=== PATIENT | female | born 1955 | race Caucasian/White ===

== ENCOUNTER 2021-04-15 17:46 | Observation (INO) | payer MEDICARE ==
--- NOTE | 2021-04-15 18:46 | EDM.PDOC ---
ED HPI GENERAL MEDICAL PROBLEM - General Chief Complaint: General Stated Complaint: SWOLLEN LEGS Time Seen by Provider: 04/15/21 18:25 Source of Information: Reports: Patient History Limitations: Reports: No Limitations - History of Present Illness INITIAL COMMENTS - FREE TEXT/NARRATIVE: 65 year old female with PMH of HTN presents to ED after 2 weeks of bilateral LE swelling and left leg pain. She denies any CP, fever, cough, abdominal, n/v/d. She dose have urinary frequency, but no burning. Her left leg pain is from her hip to her ankle and increased with walking. Patient appears very unkept. Dyspnea on exertion. - Related Data Allergies Allergy/AdvReac Type Severity Reaction Status Date / Time No Known Allergies Allergy Verified 04/15/21 20:27 Home Meds: Home Meds Hydrochlorothiazide/Lisinopril [Lisinopril-HCTZ 20-12.5 MG] 1 tab PO DAILY 04/15/21 [History] Social & Family History - Tobacco Use Tobacco Use Status *Q: Never Tobacco User Second Hand Smoke Exposure: No - Caffeine Use Caffeine Use: Reports: Soda - Recreational Drug Use Recreational Drug Use: No ED ROS GENERAL - Review of Systems Review Of Systems: See Below Constitutional: Reports: No Symptoms HEENT: Reports: No Symptoms Respiratory: Reports: Shortness of Breath Cardiovascular: Reports: Dyspnea on Exertion Endocrine: Reports: No Symptoms GI/Abdominal: Reports: No Symptoms : Reports: Frequency Musculoskeletal: Reports: Leg Pain Skin: Reports: Other (dermopathy of bilateral LE, entire body had multiple bug bites in various stages of healing ) Neurological: Reports: No Symptoms Psychiatric: Reports: No Symptoms Hematologic/Lymphatic: Reports: No Symptoms Immunologic: Reports: No Symptoms ED EXAM, GENERAL - Physical Exam Exam: See Below Exam Limited By: No Limitations General Appearance: Alert, No Apparent Distress Eye Exam: Bilateral Eye: Normal Inspection, PERRL Ears: Normal External Exam, Normal Canal, Hearing Grossly Normal, Normal TMs Ear Exam: Bilateral Ear: Auricle Normal, Canal Normal, TM normal Nose: Normal Inspection, Normal Mucosa, No Blood Throat/Mouth: Normal Inspection, Normal Lips, Normal Gums, Normal Oropharynx, Normal Voice, No Airway Compromise Head: Atraumatic Neck: Normal Inspection, Non-Tender, Full Range of Motion Respiratory/Chest: No Respiratory Distress, Lungs Clear, Normal Breath Sounds, No Accessory Muscle Use, Chest Non-Tender Cardiovascular: Normal Peripheral Pulses, Regular Rate, Rhythm, No JVD, No Murmur Peripheral Pulses: 2+: Dorsalis Pedis (L), Dorsalis Pedis (R), 3+: Carotid (L), Carotid (R), Radial (L), Radial (R), Posterior Tibial (L), Posterior Tibial (R) GI/Abdominal: Normal Bowel Sounds, Soft, Non-Tender, No Organomegaly Back Exam: Normal Inspection, Full Range of Motion. No: CVA Tenderness (R), CVA Tenderness (L) Extremities: Normal Capillary Refill, Pedal Edema, Leg Pain Neurological: Alert, Oriented, CN II-XII Intact, Normal Gait, No Motor/Sensory Deficits Psychiatric: Normal Affect, Normal Mood Skin Exam: Warm, Dry Lymphatic: No Adenopathy Course - Vital Signs Last Recorded V/S: Last Vital Signs Temp 99.0 F 04/15/21 18:38 Pulse 92 04/15/21 20:30 Resp 18 04/15/21 20:30 BP 149/74 H 04/15/21 20:30 Pulse Ox 97 04/15/21 20:30 - Orders/Labs/Meds Orders: Active Orders 24 hr Category Date Time Status Admission Status [Patient Status] [ADT] Routine ADT 04/15/21 22:32 Ordered EKG Documentation Completion [RC] ASDIRECTED Care 04/15/21 18:48 Active Chest 1V Frontal [CR] Stat Exams 04/15/21 18:53 Taken Chest w Cont [CT] Stat Exams 04/15/21 20:44 Taken CORONAVIRUS COVID-19 RAPID [MOLEC] Stat Lab 04/15/21 22:28 Ordered CULTURE URINE [RM] Stat Lab 04/15/21 20:00 Received Enoxaparin [Lovenox] Med 04/15/21 22:36 Once 80 mg SUBCUT ONETIME ONE Iopamidol [Isovue-300 (61%)] Med 04/15/21 21:00 Active 100 ml IV . DIRECTED Medication Orders Iopamidol (Iopamidol 612 Mg/Ml 100 Ml Bottle) 100 ml IV . DIRECTED ARLETTE Labs: Laboratory Tests 04/15/21 04/15/21 04/15/21 Range/Units 19:10 19:10 19:15 WBC 11.9 H (4.0-11.0) K/uL RBC 4.44 (3.80-5.80) M/uL Hgb 13.6 (11.5-16.5) g/dL Hct 40.4 (37.0-47.0) % MCV 91 (76-96) fL MCH 30.6 (27.0-32.0) pg MCHC 33.7 (31.0-35.0) g/dL RDW 13.4 (11.0-16.0) % Plt Count 227 (150-500) K/uL MPV 11.8 H (6.0-10.0) fL Neut % (Auto) 58.1 (45.0-70.0) % Lymph % (Auto) 31.7 (20.0-40.0) % [place] % (Auto) 8.2 (3.0-10.0) % Eos % (Auto) 1.8 (1.0-5.0) % Baso % (Auto) 0.2 (0.0-0.5) % Neut # (Auto) 6.91 (2.00-7.50) K/uL Lymph # (Auto) 3.78 (1.50-4.00) K/uL [place] # (Auto) 0.98 H (0.20-0.80) K/uL Eos # (Auto) 0.22 (0.04-0.40) K/uL Baso # (Auto) 0.02 (0.02-0.10) K/uL D-Dimer, Quantitative 725 H (0-400) ng/mL Sodium 142 (136-145) mmol/L Potassium 3.9 (3.5-5.1) mmol/L Chloride 106 (98-107) mmol/L Carbon Dioxide 28.0 (21.0-32.0) mmol/L Anion Gap 11.9 (5.0-15.0) mmol/L BUN 21 (8-26) mg/dL Creatinine 0.95 (0.55-1.02) mg/dL Est Cr Clr Drug Dosing 50.30 mL/min Estimated GFR (MDRD) 59 L (>60) MLS/MIN BUN/Creatinine Ratio 22.1 (6-25) Glucose 111 H (74-100) mg/dL Calcium 8.8 (8.5-10.1) mg/dL Total Bilirubin 0.2 D (0.0-1.0) mg/dL AST 23 (15-37) U/L ALT 24 (12-78) U/L Alkaline Phosphatase 95 (46-116) U/L Troponin I < 0.017 (0.000-0.060) ng/mL B-Natriuretic Peptide 50 (0-125) pg/mL Total Protein 7.4 (6.4-8.2) g/dL Albumin 3.3 L (3.4-5.0) g/dL Globulin 4.1 (2.2-4.2) g/dL Albumin/Globulin Ratio 0.8 (0.8-2.0) Urine Color Urine Appearance (CLEAR) Urine pH (5.0-8.0) Ur Specific [place] (1.003-1.030) Urine Protein (NEGATIVE) mg/dL Urine Glucose (UA) (NEGATIVE) mg/dL Urine Ketones (NEGATIVE) mg/dL Urine Occult Blood (NEGATIVE) Urine Nitrite (NEGATIVE) Urine Bilirubin (NEGATIVE) Urine Urobilinogen (0.2-1.0) E.U./dL Ur Leukocyte Esterase (NEGATIVE) Urine RBC /HPF Urine WBC /HPF Ur Squamous Epith Cells /HPF Urine Bacteria /HPF 04/15/21 Range/Units 20:00 WBC (4.0-11.0) K/uL RBC (3.80-5.80) M/uL Hgb (11.5-16.5) g/dL Hct (37.0-47.0) % MCV (76-96) fL MCH (27.0-32.0) pg MCHC (31.0-35.0) g/dL RDW (11.0-16.0) % Plt Count (150-500) K/uL MPV (6.0-10.0) fL Neut % (Auto) (45.0-70.0) % Lymph % (Auto) (20.0-40.0) % [place] % (Auto) (3.0-10.0) % Eos % (Auto) (1.0-5.0) % Baso % (Auto) (0.0-0.5) % Neut # (Auto) (2.00-7.50) K/uL Lymph # (Auto) (1.50-4.00) K/uL [place] # (Auto) (0.20-0.80) K/uL Eos # (Auto) (0.04-0.40) K/uL Baso # (Auto) (0.02-0.10) K/uL D-Dimer, Quantitative (0-400) ng/mL Sodium (136-145) mmol/L Potassium (3.5-5.1) mmol/L Chloride (98-107) mmol/L Carbon Dioxide (21.0-32.0) mmol/L Anion Gap (5.0-15.0) mmol/L BUN (8-26) mg/dL Creatinine (0.55-1.02) mg/dL Est Cr Clr Drug Dosing mL/min Estimated GFR (MDRD) (>60) MLS/MIN BUN/Creatinine Ratio (6-25) Glucose (74-100) mg/dL Calcium (8.5-10.1) mg/dL Total Bilirubin (0.0-1.0) mg/dL AST (15-37) U/L ALT (12-78) U/L Alkaline Phosphatase (46-116) U/L Troponin I (0.000-0.060) ng/mL B-Natriuretic Peptide (0-125) pg/mL Total Protein (6.4-8.2) g/dL Albumin (3.4-5.0) g/dL Globulin (2.2-4.2) g/dL Albumin/Globulin Ratio (0.8-2.0) Urine Color Yellow Urine Appearance Clear (CLEAR) Urine pH 6.0 (5.0-8.0) Ur Specific [place] < 1.005 (1.003-1.030) Urine Protein Negative (NEGATIVE) mg/dL Urine Glucose (UA) Negative (NEGATIVE) mg/dL Urine Ketones Negative (NEGATIVE) mg/dL Urine Occult Blood Negative (NEGATIVE) Urine Nitrite Negative (NEGATIVE) Urine Bilirubin Negative (NEGATIVE) Urine Urobilinogen 0.2 (0.2-1.0) E.U./dL Ur Leukocyte Esterase Trace H (NEGATIVE) Urine RBC Not seen /HPF Urine WBC 0-5 H /HPF Ur Squamous Epith Cells Few /HPF Urine Bacteria Few /HPF Meds: Medications Generic Name Dose Route Start Last Admin Trade Name Freq PRN Reason Stop Dose Admin Iopamidol 100 ml 04/15/21 21:00 Iopamidol 612 Mg/Ml 100 Ml Bottle IV . DIRECTED ARLETTE Discontinued Medications Generic Name Dose Route Start Last Admin Trade Name Marly PRN Reason Stop Dose Admin Acetaminophen 650 mg 04/15/21 18:47 Acetaminophen 325 Mg Tab PO 04/15/21 18:48 NOW ONE Acetaminophen Confirm 04/15/21 20:50 Acetaminophen 325 Mg Tab Administered 04/15/21 20:51 Dose 650 mg .ROUTE .STK-MED ONE Sodium Chloride 50 ml 04/15/21 20:55 Sodium Chloride 0.9% 50 Ml Sdv FLUSH 04/15/21 20:56 ONETIME ONE Departure - Departure Time of Disposition: 22:46 Disposition: Admitted As Inpatient 65 Clinical Impression: SOBOE (shortness of breath on exertion), Need for follow-up by group social worker Lower extremity pain Qualifiers: Laterality: left Qualified Code(s): M79.605 - Pain in left leg - Discharge Information *PRESCRIPTION DRUG MONITORING PROGRAM REVIEWED*: Not Applicable *COPY OF PRESCRIPTION DRUG MONITORING REPORT IN PATIENT DILMA: Not Applicable Referrals: PCP,None [Primary Care Provider] - Forms: ED Department Discharge Sepsis Event Note (ED) - Focused Exam Vital Signs: Vital Signs Temp Pulse Resp BP Pulse Ox 04/15/21 20:30 92 18 149/74 H 97 04/15/21 18:38 99.0 F 95 17 154/47 H 98 - My Orders Last 24 Hours: My Active Orders 04/15/21 18:48 EKG Documentation Completion [RC] ASDIRECTED 04/15/21 18:53 Chest 1V Frontal [CR] Stat 04/15/21 20:00 CULTURE URINE [RM] Stat 04/15/21 20:44 Chest w Cont [CT] Stat 04/15/21 21:00 Iopamidol [Isovue-300 (61%)] 100 ml IV . DIRECTED 04/15/21 22:28 CORONAVIRUS COVID-19 RAPID [MOLEC] Stat 04/15/21 22:32 Admission Status [Patient Status] [ADT] Routine 04/15/21 22:36 Enoxaparin [Lovenox] 80 mg SUBCUT ONETIME ONE - Assessment/Plan Last 24 Hours: My Active Orders 04/15/21 18:48 EKG Documentation Completion [RC] ASDIRECTED 04/15/21 18:53 Chest 1V Frontal [CR] Stat 04/15/21 20:00 CULTURE URINE [RM] Stat 04/15/21 20:44 Chest w Cont [CT] Stat 04/15/21 21:00 Iopamidol [Isovue-300 (61%)] 100 ml IV . DIRECTED 04/15/21 22:28 CORONAVIRUS COVID-19 RAPID [MOLEC] Stat 04/15/21 22:32 Admission Status [Patient Status] [ADT] Routine 04/15/21 22:36 Enoxaparin [Lovenox] 80 mg SUBCUT ONETIME ONE Plan: PE CT was "very suboptimal and essentially nondiagnostic for PE", Berna noguera called radiologist to discuss this finding. The radiologist said that the patient may have been anxious and have fast cardiac output, therefore the contrast moved too quickly. Called [place] [facility] to speak with ED MR, Dr. Zamorano, they also do not have US, he advised to give the patient 1 dose of lovenox sq 1mg/kg, obs admit and then find US in the AM. Patient and daughter are both agreeable to this plan. Patient will be admitted obs. [id number] Patient will need bilateral LE US in the AM, and social work consult. Spoke with Dr. Barnes ehospitalist, he thinks this is a reasonable plan and will see the patient on camera shortly. Maria E patient;s daughter # [phone], please call with updates as needed.
[2021-04-15] MEDS ORDERED: Acetaminophen 325 MG Tab PO ONE (18:47)
--- NOTE | 2021-04-15 19:43 | PCM.EKG ---
#1 Interpretation EKG Date: 04/15/21 Time: 19:10 Rhythm: NSR [place]: Normal P-Wave: Present QRS: Normal ST-T: Normal QT: Normal Comparison: NA - No Prior EKG
--- NOTE | 2021-04-15 19:51 | PCM.SN.2 ---
- Free Text/Narrative Note: Patient arrives very unkept, visible dirt on skin, strong odor, odor of pets, what appears to be flea or bed bug bites all over her body. Spoke with daughter, patient has 15 cats, 1 large dog, 1 small dog, her daughter states she has been trying to get her mother to move, but she will not clean or move out. Tiffani LARA called Micha the social services manager to report a self neglect of an adult. Discussed with daughter vulnerable status for her mother, she agrees there is self-neglect for self care and her decision making capacity is decreased per her daughter. There are concerns for financial issues about paying her bills. Her daughter has just found out how bad her living situation is, she is looking for some help and resources to help her mother.
[2021-04-15] MEDS ORDERED: Acetaminophen 325 MG Tab ONE (20:50)
[2021-04-15] MEDS ORDERED: Sodium Chloride 0.9% 50 ML SDV FLUSH ONE (20:55)
[2021-04-15] MEDS ORDERED: Iopamidol 612 MG/ML 100 ML Bottle IV SCH (21:00)
[2021-04-15] MEDS ORDERED: Enoxaparin 80 MG/0.8 ML Syringe SUBCUT ONE (22:36)
--- NOTE | 2021-04-16 00:47 | PCM.SN.2 ---
- Free Text/Narrative Note: [facility]. The [facility] Hospitalist was contacted by the ER provider, with a request for admission support and cross coverage service for this patient. The local provider is Joanie Aaron NP Reason for Admission: Suspected left lower extremity DVT and pulmonary embolism. HPI: This patient is a 65-year-old lady with a history of hypertension and lower leg edema. She was brought in by her daughter who reported that the patient has been complaining of worsening swelling in her legs for 2 weeks and increased shortness of breath, especially with exertion, for the last couple of days. The patient has also complained of left leg pain and redness for the last couple of days. Patient states the pain extends from the left hip to the ankle and is worsened by weightbearing and walking. The patient appears to have very poor hygiene and is suffering from insect bites (probably flea bites) on her extremities. The patient admits to having several dogs and cats in her home. The ER provider also feels there is some evidence that the patient has some form of developmental or intellectual delay syndrome, and chronically suffers from poor self-management/self-care. She claims hypertension as her only health problem. She denies other chronic health problems that she sees a physician for, and claims no operations in the past. Her evaluation in the ER revealed a mild temperature elevation at 99 degrees. She was hemodynamically stable with a heart rate of 92 and a blood pressure of 149/78. Her SaO2 level was 97% on room air. Her physical exam was most remarkable for bilateral lower extremity edema in the 2/4 range. There also appears to be increased mild erythema in the left leg. A D-dimer was elevated at 725. The remainder of her basic lab data was unremarkable. A CTA of the chest to rule out PE was suboptimal and nondiagnostic for PE. The official radiology report is pending. A venous Doppler flow study is not available at the local hospital. The ER provider has opted to start the patient on full anticoagulation therapy and seek out appropriate studies at another facility tomorrow, as well as consider the pros and cons of repeating the CTA of the chest at an appropriate time or getting a ventilation/perfusion scan of the lungs were available. The the [facility] hospitalist has been consulted to provide cross coverage services and admission support. Refer to the ER provider for more detail on the HPI. Regarding the additional studies that are being planned, I recommended that the patient should be considered for an echocardiogram due to her fairly chronic leg edema and worsening dyspnea on exertion. Home Medications: Reviewed in the EMR. Pertinent Medical History: Hypertension. Pertinent Social History: See admission H&P. EXAM: Performed via interactive video with assistance of bedside nurse, Be olivares. VITAL SIGNS: T 99. P 92. RR 18. BP 149/78. SPO2 97% on RA. Weight 81.67 kg. GENERAL APPEARANCE: Alert and oriented to person, place, and time. The patient is conversant and able to answer questions appropriately. She does not appear short of breath. No distress displayed. NECK: No JVD seen. Supple. HEENT: Facial features symmetric. Mucous membranes normal-appearing. LUNGS: CTA, bilaterally. HEART: There is a regular rhythm and rate. No murmurs, gallops, or rubs are heard. ABDOMEN: Soft. Nontender. EXTREMITIES: There is 2/4 dependent edema in both lower extremities below the kn ee. There appears to be mild rubor or erythema in the left leg below the knee. No tenderness detected SKIN: Multiple insect bites noted on the lower extremities, bilaterally. Fleabites are suspected. NEUROLOGICAL: Alert and well oriented x3. Cranial nerves II through XII appear to be functioning normally. No tremors or myoclonus are seen. Normal volitional movement is seen in all 4 extremities. Pertinent Lab data reviewed in the EMR: Hgb 13.6. HCT 40.4. WBC 11.9. PLT 227. D-dimer 725. BUN 21. Creatinine 0.95. Glucose 111. EKG: Per the ER providers interpretation, there is NSR. No heart blocks seen. No Ischemic ST segment or T wave abnormalities seen. No acute ST segment elevation or Q wave formation seen. RADIOLOGY: Images and available radiology reports were reviewed in the EMR. A CT of the chest was established as nondiagnostic and suboptimal for ruling out pulmonary embolism. ASSESSMENT 1. Assessment and plans have been reviewed with the admitting local provider: Joanie Aaron NP. 2. Suspected left lower extremity thrombophlebitis/DVT. 3. Suspected PE. 4. Dyspnea and ROME by history and exam. 5. Bilateral lower extremity edema. 6. Elevated D-Dimer. 7. History of HTN. 8. Evidence of poor self-care. PLAN/RECOMMEND 1. [facility] [place] [facility] admission support, and cross-coverage service. 2. The [facility] hospitalist will review admission orders. 3. Recommend starting full anticoagulation therapy at this time (Lovenox 1 mg/kg subcutaneously twice daily). 4. Consider the pros and cons of repeating the CTA of the chest at an appr opriate time or getting an alternative study such as a ventilation/perfusion scan of the lungs were available. 5. Recommend venous Doppler flow studies of both lower extremities. 6. Recommend an echocardiogram. 7. Recommend telemetry and close monitoring of vital signs. Thank you for including [facility]. This service is available for further assistance as requested by your care team by calling [phone].
[2021-04-16] MEDS ORDERED: Lisinopril 20 MG Tab PO SCH (08:00)
[2021-04-16] MEDS ORDERED: Hydrochlorothiazide 12.5 MG Cap PO SCH (08:00)
--- NOTE | 2021-04-16 08:46 | CR ---
DATE OF SERVICE: 04/15/21 CLINICAL DATA: LE edema AP PORTABLE CHEST: Comparison is made to a prior exam dated 07/06/19. The patient has taken a poor inspiration. The heart is enlarged. It has increased in size from the prior exam. The pulmonary vasculature appears more prominent than on the prior exam with some cephalization of flow consistent with pulmonary venous congestion. Mild congestive failure should be considered. The lungs are clear. No pneumothorax. No pleural effusions. [id number] [facility]
--- NOTE | 2021-04-16 08:59 | CT ---
DATE OF SERVICE: 04/15/21 CLINICAL DATA: LE edema, elevated ddimer ENHANCED CHEST CT: Multislice acquisition through the chest with IV contrast was performed. No priors. There is an adequate contrast opacification of the pulmonary arteries to exclude PE. No pneumothorax. No pleural effusions. The ascending aorta is mildly ectatic. It measures 3.5 cm in diameter. No evidence of aortic dissection. The heart size is normal. No pericardial effusion. There are atelectatic changes of the dependent portion of both lungs and in both lung bases. There are linear densities in both lower lungs consistent with linear atelectatic or fibrosis. The lungs are otherwise clear. No areas of consolidation. No hilar or mediastinal adenopathy. There is degenerative disc disease throughout the thoracic spine. No other significant findings. [id number] [facility]
[2021-04-16] MEDS ORDERED: diphenhydrAMINE 25 MG Cap PO PRN (09:05)
--- NOTE | 2021-04-17 17:40 | PCM.SN.2 ---
- Free Text/Narrative Note: Additional Radiologist review stated that the PE CT was negative for clots. Her bilateral LE US was also negative for clots. Daughter Maria E is in touch with Micha Mcdonald [facility] and is working to find new housing for her mother in the meantime she will stay at [facility]. Maria E and patient verbalized understanding of DC and all questions were answered prior to DC.
== END 2021-04-16 17:30 | disposition home or self-care (01) ==
LOC: LB.ED 17:46 → LB.MS 22:32 → UNDOADMOB 23:18
PROVIDERS: ADMIT Nurse Practitioner; ATTEND Nurse Practitioner
DX: R60.0 Localized edema (principal); M79.605 Pain in left leg; N39.0 Urinary tract infection, site not specified; I10 Essential (primary) hypertension; Z79.899 Other long term (current) drug therapy; Z20.822 Contact with and (suspected) exposure to COVID-19
CPT/HCPCS: 36415; 71045; 71260; 80053; 81001; 83880; 84484; 85025; 85379; 87086; 93005; 99285-25; A9270-GY; G0378; J1650; Q9967; U0002

== ENCOUNTER 2022-05-02 22:10 | Emergency (ER) | payer MEDICARE ==
[2022-05-02] MEDS ORDERED: Ketorolac 30 MG/ML SDV IM ONE (22:40)
[2022-05-02] MEDS ORDERED: Orphenadrine 60 MG/2 ML Inj IM ONE (22:41)
[2022-05-02] MEDS ORDERED: Sulfamethoxazole/Trimethoprim 800-160 MG Tab ONE (23:00)
== END 2022-05-03 00:19 | disposition home or self-care (01) ==
LOC: LB.ED 22:10
DX: N30.01 Acute cystitis with hematuria (principal); I10 Essential (primary) hypertension; Z79.899 Other long term (current) drug therapy
CPT/HCPCS: 74176; 81001; 87086; 87088; 87186; 99283; 99284-25; A9270-GY

== ENCOUNTER 2024-03-23 08:48 | Emergency (ER) | payer MEDICARE, MEDICAID | END 2024-03-23 10:05 | disposition home or self-care (01) | LOC: LB.ED 08:48 | DX: H04.123 Dry eye syndrome of bilateral lacrimal glands (principal); I10 Essential (primary) hypertension; E66.9 Obesity, unspecified; Z86.16 Personal history of COVID-19; Z68.32 Body mass index [BMI] 32.0-32.9, adult; Z79.899 Other long term (current) drug therapy | CPT/HCPCS: 99283 ==

== ENCOUNTER 2024-10-18 14:49 | Emergency (ER) | payer MEDICARE, MEDICAID ==
[2024-10-18] MEDS: Diphtheria,Pertussis(Acell),Tetanus Vaccine 0.5 ML Syringe IM ONE (15:26)
== END 2024-10-18 15:45 | disposition home or self-care (01) ==
LOC: LB.ED 14:49
DX: S91.331A Puncture wound without foreign body, right foot, initial encounter (principal); I10 Essential (primary) hypertension; E66.9 Obesity, unspecified; Z86.16 Personal history of COVID-19; Z79.899 Other long term (current) drug therapy; Z68.34 Body mass index [BMI] 34.0-34.9, adult; Z23 Encounter for immunization; W27.3XXA Contact with needle (sewing), initial encounter; Y93.E9 Activity, other interior property and clothing maintenance; Y92.039 Unspecified place in apartment as the place of occurrence of the external cause
CPT/HCPCS: 90471; 90715; 99283; 99283-25

== ENCOUNTER 2025-04-07 21:06 | Emergency (ER) | payer MEDICARE, MEDICAID ==
[2025-04-07 22:04] LABS: APPEARANCE,URINE CLEAR (CLEAR); BILIRUBIN,URINE NEGATIVE (NEGATIVE); COLOR,URINE YELLOW; GLUCOSE,URINE NEGATIVE (NEGATIVE); KETONES,URINE NEGATIVE (NEGATIVE); LEUKOCYTE ESTERASE,URINE SMALL (NEGATIVE); NITRITE,URINE NEGATIVE (NEGATIVE); OCCULT BLOOD,URINE NEGATIVE (NEGATIVE); PH,URINE 5.5 (5.0-8.0); PROTEIN,URINE NEGATIVE (NEGATIVE); UROBILINOGEN,URINE 0.2 E.U./dL (0.2-1.0)
[2025-04-07 22:08] LABS: BASOPHILS ABSOLUTE AUTO 0.02 K/uL (0.02-0.10); BASOPHILS PERCENT AUTO 0.2 % (0.0-0.5); EOSINOPHILS ABSOLUTE AUTO 0.22 K/uL (0.04-0.40); HEMATOCRIT 41.7 % (37.0-47.0); HEMOGLOBIN 13.9 g/dL (11.5-16.5); LYMPHOCYTES ABSOLUTE AUTO 3.88 K/uL (1.50-4.00); LYMPHOCYTES PERCENT AUTO 35.3 % (20.0-40.0); MEAN CORPUSCULAR HGB CONC 33.3 g/dL (31.0-35.0); MEAN CORPUSCULAR VOLUME 93 fL (76-96); MEAN PLATELET VOLUME 12.5 fL (6.0-10.0); MONOCYTES ABSOLUTE AUTO 0.91 K/uL (0.20-0.80); MONOCYTES PERCENT AUTO 8.3 % (3.0-10.0); NEUTROPHILS ABSOLUTE AUTO 5.97 K/uL (2.00-7.50); NEUTROPHILS PERCENT AUTO 54.2 % (45.0-70.0); PLATELET COUNT,PLT 202 K/uL (150-500); RED BLOOD CELL COUNT 4.49 M/uL (3.80-5.80); RED CELL DISTRIBUTION WIDTH 13.2 % (11.0-16.0)
[2025-04-07 22:10] LABS: SQUAMOUS EPITHELIAL CELLS,UR FEW /HPF
[2025-04-07 22:17] LABS: A/G RATIO 0.9 (0.8-2.0); ALBUMIN 3.3 g/dL (3.4-5.0); ANION GAP 12.5 mmol/L (5.0-15.0); BILIRUBIN TOTAL 0.3 mg/dL (0.0-1.0); BUN/CREATININE RATIO 25.5 (6-25); CALCIUM 8.7 mg/dL (8.5-10.1); CARBON DIOXIDE,CO2 28.1 mmol/L (21.0-32.0); CREATININE 1.1 mg/dL (0.55-1.02); EST CRCL DRUG DOSING (CG) 41.09 mL/min; POTASSIUM,K 3.6 mmol/L (3.5-5.1)
[2025-04-07] MEDS: Magnesium Citrate Solution 296 ML Bottle PO ONE (22:38)
== END 2025-04-07 22:41 | disposition home or self-care (01) ==
LOC: LB.ED 21:06
DX: K59.00 Constipation, unspecified (principal); I10 Essential (primary) hypertension; Z79.899 Other long term (current) drug therapy; Z86.16 Personal history of COVID-19
CPT/HCPCS: 36415; 74176; 80053; 81001; 83690; 85025; 99284; A9270